=== PATIENT | female | born 1960 | race Hispanic/Latino ===

== ENCOUNTER 2019-06-16 17:47 | Emergency (ER) | payer BC, OTHER ==
--- NOTE | 2019-06-16 20:52 | Emergency Department Report ---
ED Fall HPI - General Chief Complaint: Fall Stated Complaint: ETOH/FALL Time Seen by Provider: 06/16/19 20:31 Source: patient, EMS Mode of arrival: Stretcher - History of Present Illness Initial Comments: 58-year-old female, history of alcohol abuse, presents to ED following a fall at home. Patient states she has been drinking today. Patient reports she was outside, fell down in her yard. Neighbors called 911. Unknown LOC. Patient has abrasions to arms, legs, feet. Patient has abrasion to her left eyebrow as well. Patient denies any pain at this time. currently at bedside, was at work when the fall occurred. Patient denies taking any blood thinners. States tetanus is up to date MD Complaint: fall -: This evening Fall From: standing Fall Witnessed: no Place Fall Occurred: home Loss of Consciousness: unsure Symptoms Prior to Fall: none Location: head, other (all extremities) Severity: moderate Context: alcohol use Associated Symptoms: denies: headache, neck pain, numbness, weakness, chest paint, shortness of breath, abdominal pain - Related Data Allergies Allergy/AdvReac Type Severity Reaction Status Date / Time codeine Allergy Rash Verified 06/16/19 20:45 ED Review of Systems ROS: Stated complaint: ETOH/FALL Other details as noted in HPI Comment: All other systems reviewed and negative Respiratory: denies: shortness of breath Cardiovascular: denies: chest pain Gastrointestinal: denies: abdominal pain, vomiting Musculoskeletal: denies: back pain, joint swelling Neurological: denies: headache ED Past Medical Hx - Past Medical History Previous Medical History?: Yes Hx Hypertension: Yes Additional medical history: thyroid cancer - Surgical History Additional Surgical History: thyroidectomy - Social History Smoking Status: Former Smoker Substance Use Type: Alcohol ED Physical Exam - General Limitations: No Limitations General appearance: alert, in no apparent distress, appears intoxicated - Head Head exam: Present: other (abrasion to left eyebrow) - Eye Eye exam: Present: normal appearance, PERRL, EOMI, periorbital swelling (on le ft), other (bruising to left eye) - ENT ENT exam: Present: mucous membranes moist - Neck Neck exam: Present: normal inspection. Absent: tenderness - Respiratory Respiratory exam: Present: normal lung sounds bilaterally, other (no bruising of tenderness present). Absent: respiratory distress - Cardiovascular Cardiovascular Exam: Present: regular rate, normal rhythm - GI/Abdominal GI/Abdominal exam: Present: soft. Absent: distended, tenderness - Extremities Exam Extremities exam: Present: full ROM, other (abrasions and skin tears to bilateral upper and lower extremities; no joint swelling; no deformities) - Neurological Exam Neurological exam: Present: alert, oriented X3 - Psychiatric Psychiatric exam: Present: normal affect, normal mood - Skin Skin exam: Present: warm, dry, normal color, abrasion ED Course Vital Signs 06/16/19 06/16/19 06/16/19 18:30 18:34 19:48 Temperature 97.8 F 97.8 F 98 F Pulse Rate 99 H 91 H Respiratory 18 16 Rate Blood Pressure 124/78 117/85 [Right] O2 Sat by Pulse 100 100 Oximetry 06/16/19 22:37 Temperature Pulse Rate 80 Respiratory 16 Rate Blood Pressure 119/71 [Right] O2 Sat by Pulse 98 Oximetry ED Medical Decision Making - Radiology Data Radiology results: report reviewed, image reviewed - Medical Decision Making 58-year-old female with history of alcohol abuse presents to the status post while intoxicated. Patient has abrasions diffusely, however no lacerations for repair. CT head is negative for any intracranial abnormality. CT C-spine also negative. Patient is awake and alert, mentating well, answers questions appropriately. is here at bedside, will take patient home. Will discha rge at this time. Return precautions given. Outpatient follow-up advised. Patient counseled on alcohol abuse. - Differential Diagnosis intracranial bleed, fracture Critical care attestation.: If time is entered above; I have spent that time in minutes in the direct care of this critically ill patient, excluding procedure time. ED Disposition Clinical Impression: Multiple abrasions, Head injury, Alcohol abuse Disposition: - TO HOME OR SELFCARE Is pt being admited?: No Condition: Stable Instructions: Minor Head Injury (ED), Abuse of Alcohol (ED), Abrasion (ED) Referrals: PORTIA STAFFORD MD [Primary Care Provider] - 3-5 Days PRIMARY CAREMD [Referring] - 3-5 Days Time of Disposition: 22:19
--- NOTE | 2019-06-16 21:44 | Cat Scan Report ---
CT head without contrast HISTORY: injury. Fell today and struck head, headache TECHNIQUE: Axial imaging performed from the skull apex through the skull base without the use of con trast. All CT scans at this location are performed using CT dose reduction for ALARA by means of aut omated exposure control. COMPARISON: None FINDINGS: Parenchyma: No acute intracranial hemorrhage or parenchymal abnormality. Ventricles: There is mild diffuse brain atrophy with commensurate ventricular enlargement which is l ikely age appropriate. Soft tissues: Small left periorbital soft tissue laceration with subcutaneous gas and swelling. Bones: No acute osseous abnormality. Sinuses: Mild mucosal thickening in the maxillary sinuses. Remaining sinuses and mastoid air cells a re clear. IMPRESSION: 1. Soft tissue injury as above along the left periorbital region. 2. No acute intracranial abnormality. 3. Paranasal sinus disease. Signer Name: Dilshad Herzog MD Signed: 06/16/2019 9:39 PM Workstation Name: [id number]
--- NOTE | 2019-06-16 21:45 | Cat Scan Report ---
CT cervical spine without contrast INDICATION: Fall today with generalized neck pain. TECHNIQUE: Axial imaging performed through the cervical spine without the use of contrast. Sagittal and coronal reconstructed images were also reviewed. All CT scans at this location are performed us ing CT dose reduction for ALARA by means of automated exposure control. COMPARISON: None FINDINGS: Alignment: Slight reversal of normal cervical lordosis in the lower cervical spine. Otherwise normal alignment. Bones: There is no acute osseous abnormality. Moderate multilevel discogenic DJD is present. Soft tissues: No acute or significant incidental soft tissue abnormality. IMPRESSION: No acute abnormality. Signer Name: Dilshad Herzog MD Signed: 06/16/2019 9:41 PM Workstation Name: [id number]
[2019-06-16] MEDS ORDERED: TRIPLE ANTIBIOTIC TP ONE (22:12)
[2019-06-17 01:43] VITALS: BP 119/71
== END 2019-06-16 22:37 | disposition home or self-care (01) ==
LOC: ED 17:47
DX: S00.212A Abrasion of left eyelid and periocular area, initial encounter (principal); S40.812A Abrasion of left upper arm, initial encounter; S40.811A Abrasion of right upper arm, initial encounter; S80.812A Abrasion, left lower leg, initial encounter; S80.811A Abrasion, right lower leg, initial encounter; S09.90XA Unspecified injury of head, initial encounter; F10.129 Alcohol abuse with intoxication, unspecified; I10 Essential (primary) hypertension; Z85.850 Personal history of malignant neoplasm of thyroid; Z88.5 Allergy status to narcotic agent; W18.30XA Fall on same level, unspecified, initial encounter; Y93.89 Activity, other specified; Y92.098 Other place in other non-institutional residence as the place of occurrence of the external cause; Y99.8 Other external cause status
CPT/HCPCS: 70450; 72125; A6250